=== PATIENT | female | born 1950 | race Hispanic/Latino ===

== ENCOUNTER 2018-12-28 10:27 | Emergency (ER) | payer MEDICARE, OTHER ==
[2018-12-28 10:39] VITALS: BP 152/88
--- NOTE | 2018-12-28 12:05 | Emergency Department Report ---
ED Back Pain/Injury HPI - General Chief Complaint: Back Pain/Injury Stated Complaint: BACK PAIN Time Seen by Provider: 12/28/18 11:32 Source: patient Limitations: No Limitations - History of Present Illness Initial Comments: This is a 68-year-old female presents to the ED complaining of lower pain 6 days. Patient states last week she was trying to break up her 2 dogs who were fighting and thinks she accidentally pulled a muscle in her back. Patient states that pain has gotten worse since . Patient is pain is localized to across her lower back head above her buttocks. She denies any falls trauma, dysuria, vaginal bleeding, abdominal flank or pelvic pain MD Complaint: back pain Place: home Radiation: none - Related Data Previous Rx's Medication Instructions Recorded Last Taken Type Cyclobenzaprine [Flexeril 10 MG 10 mg PO QHS #20 tablet 12/28/18 Unknown Rx TAB] Diclofenac Dr (Nf) 50 mg PO BID #30 tablet. 12/28/18 Unknown Rx Allergies Allergy/AdvReac Type Severity Reaction Status Date / Time No Known Allergies Allergy Unverified 12/28/18 10:32 ED Review of Systems ROS: Stated complaint: BACK PAIN Other details as noted in HPI Comment: All other systems reviewed and negative ED Past Medical Hx - Medications Home Medications: Home Medications Medication Instructions Recorded Confirmed Last Taken Type Cyclobenzaprine [Flexeril 10 MG 10 mg PO QHS #20 tablet 12/28/18 Unknown Rx TAB] Diclofenac Dr (Nf) 50 mg PO BID #30 tablet. 12/28/18 Unknown Rx ED Physical Exam - General Limitations: No Limitations General appearance: alert, in no apparent distress - Head Head exam: Present: atraumatic, normocephalic - Eye Eye exam: Present: normal appearance - ENT ENT exam: Present: mucous membranes moist - Neck Neck exam: Present: normal inspection - Respiratory Respiratory exam: Present: normal lung sounds bilaterally. Absent: respiratory distress - Cardiovascular Cardiovascular Exam: Present: regular rate, normal rhythm. Absent: systolic murmur, diastolic murmur, rubs, gallop - GI/Abdominal GI/Abdominal exam: Present: soft, normal bowel sounds - Extremities Exam Extremities exam: Present: normal inspection - Back Exam Back exam: Present: normal inspection, full ROM, tenderness (to palpation of the latissimus dorsi muscles). Absent: CVA tenderness (R), CVA tenderness (L), paraspinal tenderness, rash noted - Neurological Exam Neurological exam: Present: alert, oriented X3, reflexes normal. Absent: motor sensory deficit - Psychiatric Psychiatric exam: Present: normal affect, normal mood - Skin Skin exam: Present: warm, dry, intact, normal color. Absent: rash ED Course Vital Signs 12/28/18 10:38 Temperature 97.7 F Pulse Rate 93 H Respiratory 16 Rate Blood Pressure 152/88 [Right] O2 Sat by Pulse 98 Oximetry ED Medical Decision Making - Medical Decision Making This is a 68-year-old male presents to ED with low back muscle strain Discussed with patient that we'll need a urinalysis to rule out a UTI/kidney infection. Patient states that she has had those before and this is not a UTI symptom, so she declined to leave a urine sample. Patient received Toradol and Flexeril in the ED. I watched patient ambulate without any problems. Vital signs stable, patient is no acute distress Discussed follow-up with the primary care physician patient. Critical care attestation.: If time is entered above; I have spent that time in minutes in the direct care of this critically ill patient, excluding procedure time. ED Disposition Clinical Impression: Strain of muscle, fascia and tendon of lower back, initial encounter Disposition: - TO HOME OR SELFCARE Is pt being admited?: No Does the pt Need Aspirin: No Condition: Stable Instructions: Muscle Strain (ED), Lumbar Radiculopathy (ED) Additional Instructions: Make sure to follow up with the primary care physician as discussed. Take all your medications as you've been prescribed. If you have any worsening symptoms or develop new symptoms please return to ED immediately. Prescriptions: Cyclobenzaprine [Flexeril 10 MG TAB] 10 mg PO QHS #[address] (Nf) 50 mg PO BID #30 tablet. Referrals: PRIMARY CARE, [Primary Care Provider] - 3-5 Days MICHAEL ANTOINE MD [Staff Physician] - 3-5 Days [facility] [Outside] - 3-5 Days Forms: Work/School Release Form(ED) Time of Disposition: 12:55
[2018-12-28] MEDS ORDERED: FLEXERIL PO ONE (12:17)
[2018-12-28] MEDS ORDERED: TORADOL IM ONE (12:17)
== END 2018-12-28 13:00 | disposition home or self-care (01) ==
LOC: ED 10:27
DX: S39.012A Strain of muscle, fascia and tendon of lower back, initial encounter (principal); X50.9XXA Other and unspecified overexertion or strenuous movements or postures, initial encounter; Y93.89 Activity, other specified; Y92.89 Other specified places as the place of occurrence of the external cause; Y99.8 Other external cause status
CPT/HCPCS: 96372; 99282; J1885